=== PATIENT | male | born 1945 | race Native Hawaiian/Other Pacific Islander ===

== ENCOUNTER 2016-06-19 07:48 | Outpatient (CLI) | payer OTHER, MEDICARE | END 2016-06-19 19:10 | disposition home or self-care (01) | LOC: MRI 07:48 | DX: M79.604 Pain in right leg (principal) ==

== ENCOUNTER 2016-07-07 14:47 | Outpatient (CLI) | payer OTHER, MEDICARE | END 2016-07-07 20:14 | disposition home or self-care (01) | LOC: RAD 14:47 | DX: M54.9 Dorsalgia, unspecified (principal) ==

== ENCOUNTER 2021-05-04 00:23 | Emergency (ER) | payer OTHER, MEDICARE ==
[~2021-05-04] VITALS: Ht 170.2 cm; Wt 76.2 kg
[2021-05-04 01:15] VITALS: BP 179/108; TEMP 97.5
== END 2021-05-04 01:20 | disposition home or self-care (01) ==
LOC: ED 00:23
DX: L50.8 Other urticaria (principal); R21 Rash and other nonspecific skin eruption; K21.9 Gastro-esophageal reflux disease without esophagitis
CPT/HCPCS: 96372; 99283; J1200; J2930

== ENCOUNTER 2022-07-18 10:19 | Outpatient (CLI) | payer OTHER, MEDICARE | END 2022-07-18 21:20 | disposition home or self-care (01) | LOC: RAD 10:19 | PROVIDERS: ATTEND Physician Assistant | DX: M54.59 Other low back pain (principal) ==

== ENCOUNTER 2022-08-21 09:11 | Outpatient (CLI) | payer OTHER, MEDICARE | END 2022-08-21 20:53 | disposition home or self-care (01) | LOC: MRI 09:11 | PROVIDERS: ATTEND Physician Assistant | DX: M54.59 Other low back pain (principal) ==

== ENCOUNTER 2022-10-10 01:44 | Emergency (ER) | payer OTHER, MEDICARE ==
[~2022-10-10] VITALS: Ht 170.2 cm; Wt 73.5 kg
[2022-10-10 02:32] LABS: PLATELET COUNT 205 K/uL (142-355)
[2022-10-10 03:45] VITALS: BP 132/70; TEMP 97.9
== END 2022-10-10 03:45 | disposition home or self-care (01) ==
LOC: ED 01:44
PROVIDERS: Emergency Medicine
DX: G89.29 Other chronic pain (principal); M54.9 Dorsalgia, unspecified; M54.2 Cervicalgia; Z72.0 Tobacco use
CPT/HCPCS: 80048; 84484; 85027; 93005; 96372; 99283; J1885; J2360

== ENCOUNTER 2022-11-12 07:41 | Emergency (ER) | payer OTHER, MEDICARE ==
[~2022-11-12] VITALS: Ht 170.2 cm; Wt 72.6 kg
[2022-11-12 08:59] LABS: PLATELET COUNT 219 K/uL (142-355)
[2022-11-12 09:05] LABS: PARTIAL THROMBOPLASTIN TIME 26.6 SECONDS (23.9-36.7); POTASSIUM 3.4 mmol/L (3.6-5.2)
[2022-11-12 09:24] VITALS: BP 163/99; TEMP 98.4
[2022-11-12] MEDS ORDERED: MOBIC15 MG PO (10:07)
[2022-11-12] MEDS ORDERED: GABA300C2 PO (10:07)
[2022-11-12] MEDS ORDERED: TIZANIDINE HYDRO4 MG PO (10:07)
[2022-11-12] MEDS ORDERED: FAMOTIDINE MAXI20 MG PO (10:08)
== END 2022-11-12 09:24 | disposition short-term general hospital (02) ==
LOC: ED 07:41
PROVIDERS: Family Medicine
DX: I63.9 Cerebral infarction, unspecified (principal); G81.91 Hemiplegia, unspecified affecting right dominant side
CPT/HCPCS: 51702; 80053; 81000; 84484; 85027; 85610; 85730; 92977; 93005; 99285; J3101